=== PATIENT | female | born 1955 | race Caucasian/White ===

== ENCOUNTER → 2016-12-24 | Outpatient (CLI) | payer OTHER ==
[~2016-12-24] MED LIST: AMOXICILLIN500 M1 PO; CLARITHROMYCIN500 MG PO; FENOFIBRATE145 M1 PO; NO MEDICATIONS; OMEPRAZOLE20 M2 PO; PREVACID PO; PRILOSEC20 M1 PO; ZOCOR PO; ZOFRAN ODT4 MG PO
--- NOTE | ~2016-12-24 | CT137 ---
[facility] A Service of [facility] / [facility] RADIOLOGY TEXT RESULTS PATIENT: IRAIDA GOMEZ LOCATION: [facility] : 53 UNIT #: [id number] AGE: [address]: Roxi Vazquez MD SEX: F ORDER DR: [id number] [place] [id number] O MR#: [id number] Acc #: [id number] NAME: IRAIDA GOMEZ : 1955 SEX: F STUDY DATE/TIME: 12/24/2016 11:23 UNIT: [facility] ROOM: STUDY DESCRIPTION: CT Lung Screening annual Attending Physician: Roxi Vazquez M.D. Referring Physician: Roxi Vazquez M.D. Ordering Physician: Roxi Vazquez M.D. Primary Care Physician: Roxi Vazquez M.D. MEDICAL IMAGING REPORT This report is preliminary unless electronic signature is present. EXAM CT lung cancer screening. INDICATIONS Lung cancer screening. 43 pack-year smoking history. PROCEDURE Unenhanced low-dose CT of the chest performed per lung cancer screening protocol. CT DI 2.96 mGy, total DLP 124 mGy-cm. This CT exam was performed with one or more of the following radiation dose reduction techniques: automatic exposure control, adjustment of mA and/or kV according to patient size, and iterative reconstruction. COMPARISON 11/29/2015. FINDINGS Emphysema. There is linear scarring of lingula. 4 mm nodule right upper lobe along the minor fissure is stable. No adenopathy. No acute findings in the included upper abdomen. No aggressive appearing bone lesion. IMPRESSION 1. 4 mm stable nodule along the right minor fissure probably representing a fissural lymph node. 2. Lung rads category II, benign findings. Per the ACR lung RADS recommendations suggest the patient continue with annual low-dose lung cancer screening. Dictated by... Loi Rousseau M.D. [facility] A Service [facility] RADIOLOGY TEXT RESULTS PATIENT: IRAIDA GOMEZ LOCATION: [facility] : 53 UNIT #: [id number] AGE: [address]: Roxi Vazquez MD SEX: F ORDER DR: THIS IS AN ELECTRONICALLY VERIFIED REPORT Loi Rousseau M.D. at 12/25/2016 10:02 AM CANDIE/adrianna TD: 12/24/2016 16:21 JOB #: [id number] MEDICAL IMAGING REPORT Page 1 of 1
== END | disposition home or self-care (01) ==
LOC: SCT 11:01
DX: Z87.891 Personal history of nicotine dependence (principal); R91.1 Solitary pulmonary nodule
CPT/HCPCS: G0297